=== PATIENT | male | born 1955 | race Caucasian/White ===

== ENCOUNTER 2022-04-23 07:42 | Outpatient (CLI) | payer MEDICARE, SELFPAY ==
--- NOTE | 2022-04-23 08:41 | ECG_ITS ---
Measurements Intervals [place] Rate: 54 P: 64 WI: 198 QRS: -20 QRSD: 81 T: -13 QT: 392 QTc: 374 Interpretive Statements SINUS BRADYCARDIA DELAYED PRECORDIAL R/S TRANSITION VOLTAGE CRITERIA FOR LVH BORDERLINE ST-T WAVE ABNORMALITY- INFERIOR LEADS BASELINE ARTIFACT- I, II, AVR, AVL, V1, V5-V6 BORDERLINE ECG NO PREVIOUS ECG AVAILABLE FOR COMPARISON Electronically Signed On 04-23-2022 9:17:39 CDT by Paulino De Luna D.O.
[2022-04-23 09:25] LABS: Basophils Percent Auto 0.7 % (0.2-1.2); Eosinophils Absolute Auto 0.2 K/mm3 (0-0.3); Eosinophils Percent Auto 3.5 % (0-4.4); Hematocrit 48.9 % (42.0-52.0); Hemoglobin 16.2 g/dL (14.0-18.0); Immature Granulocyte Absolute 0.02 K/mm3 (0.00-0.031); Immature Granulocyte Percent A 0.3 % (0-0.5); Lymphocytes Absolute Auto 1.46 K/mm3 (0.9-3.2); Lymphocytes Percent Auto 24.2 % (18.3-44.2); Mean Corpuscular HGB Conc 33.1 g/dl (32-36); Mean Corpuscular Hemoglobin 30.9 pg (26-34); Mean Corpuscular Volume 93.3 fl (80-100); Mean Platelet Volume 10.6 fl (7.4-10.4); Monocytes Absolute Auto 0.5 K/mm3 (0.1-0.6); Monocytes Percent Auto 8.6 % (2.6-8.5); Neutrophils Absolute Auto 3.8 K/mm3 (1.3-6.7); Neutrophils Percent Auto 62.7 % (45.5-73.1); Platelet Count Result 206 k/mm3 (150-375); Red Blood Count 5.24 M/mm3 (4.6-6.20); Red Cell Distribution Width 13.3 % (11.5-14.5)
[2022-04-23 09:37] LABS: Albumin Level 4.7 g/dL (3.5-5.1); Estimated Glomerular Filt Rate > 60; Glucose 99 mg/dL (65-110)
[2022-04-23 09:46] LABS: Urine Cotinine NEGATIVE
[2022-04-23 09:54] LABS: Hemoglobin A1C 5.7 % (<5.7)
== END 2022-04-23 07:43 | disposition home or self-care (01) ==
PROVIDERS: Visit Provider Orthopaedic Surgery
DX: Z01.818 Encounter for other preprocedural examination (principal); M17.12 Unilateral primary osteoarthritis, left knee; R00.1 Bradycardia, unspecified
CPT/HCPCS: 80307; 82040; 82565; 82947; 83036; 85025; 87081; 93005

== ENCOUNTER 2022-04-24 12:53 | Outpatient (CLI) | payer MEDICARE, SELFPAY ==
--- NOTE | ~2022-04-24 | MR_ITS ---
EXAMINATION: MR wrist RT wo con DATE: 04/24/2022 13:55 INDICATION: Numbness and tingling in the digits of the right hand post carpal tunnel release. TECHNIQUE: Magnetic resonance imaging (MRI) of the right wrist was performed without intravenous cont rast. Sequences performed include axial PD-weighted FSE and PD-weighted FS FSE, coronal PD-weighted F S FSE, T1-weighted SE and 3-D MERGE and sagittal PD-weighted FS FSE and PD-weighted FSE. COMPARISON: None FINDINGS: Intrinsic ligaments: Lunotriquetral ligament is normal. There is widening of the scapholunate interval with prominent thic kening and amorphous increased signal of the scapholunate ligament including both the dorsal and vola r components of the ligament consistent with at least partial tear. Triangular fibrocartilage complex (TFCC): There is a partial tear of the central fibrocartilaginous disc of the triangular fibrocartilage compl ex. The foveal and styloid attachments as well as the dorsal and volar radioulnar ligaments are manish l. The ulnar collateral ligament, ulnotriquetral ligament and meniscal homologue are normal. The exte nsor carpi ulnaris tendon sheath is normal. Extensor wrist: Extensor tendons of the wrist are normal. No tenosynovitis. Flexor wrist: The flexor tendons of the wrist are normal. Guyon's canal: Guyon's canal including the ulnar nerve and artery are normal. Bones/other: There is widening of the scapholunate interval consistent with insufficiency of the scapholunate liga ment. There is polyarticular osteoarthritis with nonuniform joint space narrowing and scattered subar ticular cystlike and edema-like changes. Atypical severe joint space narrowing at the lunocapitate ar ticulation and mild osteoarthritis at the wrist joint but with high-grade chondromalacia at the radio scaphoid articulation, both findings which can be seen in the setting of scapholunate advanced collap se (SLAC) wrist. Additional osteoarthritis, moderate severity at the first carpometacarpal joint and mild at the distal radioulnar, triscaphe, pisotriquetral and second and fifth carpal metacarpal joint s. There is thickening of the flexor retinaculum at the distal aspect of the carpal tunnel likely rel ated to reported history of prior carpal tunnel release. The more proximal aspect of the flexor retin aculum appears to remain thin and intact. There is mild increased T2 signal at the thenar musculature which could be seen with neuropathy of the motor branch of the median nerve. IMPRESSION: 1. 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 2. At least partial tear of the scapholunate ligament which appears insufficient with widening of the scapholunate joint space and secondary scapholunate advanced collapse (SLAC) wrist with severe osteo arthritis at the lunocapitate articulation of the midcarpal joint and mild osteoarthritis with high-g rade chondral malacia the radioscaphoid articulation. 3. Additional more typical distribution of mild to moderate polyarticular osteoarthritis at the wrist and carpus. Reviewed, dictated and finalized at location B. IMPRESSION: 1. 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
== END 2022-04-24 12:54 | disposition home or self-care (01) ==
LOC: ANHIMG 13:00
PROVIDERS: Visit Provider Orthopaedic Surgery
DX: Z98.890 Other specified postprocedural states (principal); M19.031 Primary osteoarthritis, right wrist; S63.591A Other specified sprain of right wrist, initial encounter; T14.90XA Injury, unspecified, initial encounter
CPT/HCPCS: 73221

== ENCOUNTER 2022-05-06 00:04 | Day surgery (SDC) | payer MEDICARE, SELFPAY ==
--- NOTE | 2022-04-23 07:34 | PC.NURSE ---
Addendum entered by Barbara Dyson RN 04/23/22 08:16: STOP ALL VITAMINS AND SUPPLEMENTS 3 DAYS PRIOR TO SURGERY PER ANESTHESIA, DATE TO TAKE LAST DOSE 05/02/22 Original Note: PRE-OP INSTRUCTIONS, PLEASE READ CAREFULLY Report to the Outpatient Waiting Room, entrance under the green pavilion located off [facility], at time _0830_ on date _05/06/22_. Planned Procedure Time: _1030_. PACK A SMALL OVERNIGHT BAG AND LEAVE IN THE CAR ALONG WITH YOUR WALKER Time changes happen often and if your time is changed the preop area will call you the afternoon before. - You and your visitor will be asked to self-screen and do not enter if you have any COVID symptoms. - Only one visitor is requested with a max of two and NO children visitors are allowed at this time. - The patient visitor may be requested to leave or wait in car when not with patient due to distancing restrictions. - A mask is optional within the hospital at this time. -VISITING HOURS 8AM-8PM Patients may have clear liquids (water, carbonated beverages, clear teas, apple juice) until 3 hours prior to surgery (0730 AM) with a maximum of 20 ounces. - No food from midnight until time of surgery Take the following medications with a SIP of water the morning of surgery: N/A DO NOT STOP ANY OF YOUR OTHER PRESCRIPTION MEDICATIONS PRIOR TO SURGERY ?EXCEPT THE FOLLOWING Medications to discontinue _IBUPROFEN PER DR. BALLARD'S INSTRUCTIONS__ Date to take last dose Please no deodorant, or body powder the day of surgery. No jewelry (including any body piercings) or valuables the day of surgery, leave them at home. Please take a shower or bath the night before, or the morning of, surgery with an antibacterial soap. Wear comfortable, loose fitting clothing. - Jewelry must be removed prior to entering the operating room. Rings and piercings that are not removed may be cut off. - The hospital will not accept responsibility for valuables. - Please leave all valuables, including medications, at home the day of surgery. If you are going home after surgery, a licensed star route mail driver must drive you home. - NO public transportation without another adult if you receive anesthesia. - We recommend that an adult stay with you for 24 hours following discharge. - We also recommend that you do not drive, make important decision, drink alcoholic beverages, or take any drugs that were not prescribed by your health care provider for at least 24 hours after your discharge time. Follow any additional instructions given to you from your surgeon. TOTAL JOINT CLASS 04/24/22 @ [address] [place] [address] ENTRANCE 2 - LOWER LEVEL If you or anyone in your household have experienced Covid symptoms in the past week, please notify your surgeon or the nurse liaison at the phone number below for possible testing. Instructions given to _PATIENT_and asked if any additional questions and then verbalized understanding. Patient advised to call surgeon office or pre surgery nurse liaison [phone] if any additional questions.
[2022-04-23 08:08] VITALS: BP 160/74; PULSE 60; RESP 20; TEMP 37.1; O2SAT 99; BMI 31.6
[2022-05-06] VITALS (16 sets, daily range): BP systolic 97–167; BP diastolic 52–90; PULSE 49–88; RESP 12–18; TEMP 36.3–36.6; O2SAT 96–100
--- NOTE | ~2022-05-06 | XR_ITS ---
EXAMINATION: [id number] DATE: 05/06/2022 13:53 INDICATION: Total left knee arthroplasty. Postop. TECHNIQUE: 2 views of left knee were obtained. COMPARISON: Left knee radiographs 04/03/2022 FINDINGS: There is a total left knee arthroplasty in near-anatomic alignment with patellar resurfacin g. No fracture. There is gas in the knee joint and soft tissues, consistent with recent surgery. IMPRESSION: 1. Total left knee arthroplasty in near-anatomic alignment. Reviewed, dictated and finalized at location A.
[2022-05-06] MEDS: ACETAMINOPHEN 500 MG TABLET 1000 MG PO (09:01)
--- NOTE | 2022-05-06 09:01 | WPDANESEPPF ---
Anes - Initial Pre Proc Eval Procedure: Operation Date: 05/06/22 10:30 Proposed Procedures p Left Total Knee Arthroplasty - Spenser Marte MD Date/Time: 05/06/22 09:01 Surgeon: Spenser Marte MD Pre Op Diagnosis: oa left knee Patient Data Age: 66 Gender: M Height: 1.74 m Weight: 95.7 kg Last Vital Signs Temp 37.1 C 04/23/22 08:08 Pulse 60 04/23/22 08:08 Resp 20 04/23/22 08:08 BP 160/74 H 04/23/22 08:08 Pulse Ox 99 04/23/22 08:08 O2 Del Method Room Air 04/23/22 08:08 Allergies Allergy/AdvReac Type Severity Reaction Status Date / Time No Known Allergies Allergy Verified 05/06/22 08:55 Home Medications Medication Instructions Recorded Confirmed Type [place] Xl 2 tab-cap BID 04/23/22 05/06/22 History Super Beta Prostrate 1 tab-cap BID 04/23/22 05/06/22 History chlorpheniramine-phenylpropan 4 1 tablet PO DAILY PRN CONGENSTION 04/23/22 05/06/22 History mg-37.5 mg tablet ginkgo biloba 60 mg tablet 60 mg PO QAM 04/23/22 05/06/22 History glucosam 750 mg-chondroi 100 See Rx Instructions .Route .COMPLEX 04/23/22 05/06/22 History mg-hyalur 1.65 mg-CF borate 108 mg tablet ([employer]) ibuprofen 200 mg tablet 800 mg PO Q6H PRN Pain 04/23/22 05/06/22 History multivitamin 1 tablet PO DAILY 04/23/22 05/06/22 History rivaroxaban 10 mg tablet (Xarelto) 10 mg PO DAILY PE prophylaxis s/p 04/25/22 04/25/22 Rx joint replacement surgery 14 days #14 tabs tdyjsqjp-cdyweytoi-bfqevroxb 3.5 3 drp LEFT EAR TID 05/06/22 05/06/22 History mg-10,000 unit/mL-1 % ear drops,susp Patient hx anesthesia problems: none Family hx anesthesia problems: none Results Review: All pre-operative results and documents have been reviewed as part of the pre-operative evaluation. PMFSH Past Medical History Medical History Osteoarthritis of left knee Surgical History Surgical History History of carpal tunnel surgery of left wrist 1995 History of carpal tunnel surgery of right wrist 2021 History of right knee joint replacement 2016 Family History Family History Grandparent Diabetes mellitus Social History Social History Smoking packs per day: 1 Smoking cigarettes per day: 20.0 Years smoked: 15 Smoking pack-years: 15.00 Smoking status: Former smoker Tobacco type: cigarettes Second hand tobacco smoke exposure: No Smoking end date: 02/10/98 Additional smoking assessment comments: PT DENIES ALL FORMS OF TOBACCO USE Alcohol intake: current Drinks per week: 3 Substance use: never Substance use type: does not use Living arrangements: alone Occupation/Education: occupation 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 Gender identity (if verbalized by the patient): Male Sexual Orientation (if Verbalized by the Patient): Straight or Heterosexual Spiritual care concerns: Yes Agree to blood products: No Anes - Eval Final PreProcedure Day of Procedure 05/06/22 09:01 Patient weight: obese Heart: regular rate and rhythm Lungs: clear to auscultation Airway: Mallampati scale class II Neurological: alert and oriented Last oral intake: >/= 8 hours ASA classification: II Emergent: no Anesthetic plan: proceed Anesthesia type and monitoring: general GIVS, regional spinal and standard monitoring Results Review: All pre-operative results and documents have been reviewed as part of the pre-operative evaluation. Informed Consent: The patient's anesthetic plan and its attendant risks and benefits were discussed with the patient/family/POA. Questions were solicited and answers provided to the satisfaction of the patient/family/POA.
[2022-05-06] MEDS: LACTATED RINGERS 1,000 ML 30 ML IV CONT ×3 (09:10→15:40)
--- NOTE | 2022-05-06 09:35 | WPDANESPNB ---
Anes - Peripheral Nerve Block Date/Time: 05/06/22 09:35 I have discussed with the patient/family/POA the placement of a peripheral nerve block for post-operative pain management, including associated risks, benefits, complications, and side effects. Alternative methods of post-operative analgesia were detailed. Questions were solicited and answers provided to the satisfaction of the patient/family/POA. Time-Out: A pre-procedural Time-Out was completed immediately before starting the procedure and confirmed: Patient Identification, Site, Procedure, Patient Position and the Availability of Requisite Equipment. Clinical Indications: Acute post-operative pain management requested by the operative surgeon. Nerve Block Insertion Note Anes-nerve block: adductor canal left Patient position: supine Skin prep: chlorhexidine Needle: 22 gauge, stimulating, insulated echogenic needle. Needle length: 80 mm Technique: ultrasound Injectate: bupivacaine 0.5% with epi 5 mcg/ml (30cc - no epi) Observations: tolerated well Complications: none Procedure start time:: 1017 Procedure end time:: 1019
[2022-05-06] MEDS: TRANEXAMIC ACID 1,000MG/ISO100 1,000 MG/100 ML BAG 200 MG IVPB (09:48)
--- NOTE | 2022-05-06 09:55 | WPDHPUPDATE1 ---
History and Physical Update Update Date/Time: 05/06/22 09:55 History and Physical has been reviewed, including an updated exam of the patient. There are NO changes in the patient's condition. Risks, benefits, and alternatives have been discussed and questions answered. Patient agrees to proceed with procedure.
[2022-05-06] MEDS: ceFAZolin 2 GM/D5W 50 ML 2 GM/50 ML BAG IVPB ×2 (10:49→18:42)
[2022-05-06] MEDS: GENTAMICIN BONE CEMENT REFOBACIN 1 EACH TOPICAL (12:07)
[2022-05-06] MEDS: ceFAZolin SODIUM 1 GM VIAL IV PUSH (12:39)
--- NOTE | 2022-05-06 13:21 | W.PM.PROC2 ---
Procedure Note - Detailed Date of Procedure 05/06/22 Pre-op Diagnosis oa left knee Post-op Diagnosis Same Procedure Performed Left total knee replacement Surgeon Spenser Marte MD [employer] Hanna [facility] Anesthesia Regional and Spinal Description of Procedure The patient was identified and proper site identified. In the preop holding area the anesthesia team performed a left-sided sub sartorial block after which the patient was taken to the operating room and transferred to the OR table positioning supine taking care to pad the torso and extremities. After spinal anesthetic was administered, a nonsterile tourniquet was placed high on the left thigh. The left lower extremity was prepped and draped in the usual sterile fashion. The extremity was exsanguinated and with the knee flexed tourniquet was inflated to 300 mmHg remaining up for approximately 75 minutes. An anterior midline incision was made and a modified medial parapatellar approach was used. Infra and suprapatellar fat pads were excised. Patella was resected leaving 15 mm thickness and prepared for the size 34 round three peg component. Using the intramedullary guide the distal femur was cut in the proper orientation for the size 70 femoral component. Using the extramedullary guide the tibia was cut perpendicular to the long axis protecting collateral ligaments and popliteal structures. It was sized to a 79. Flexion and extension gaps were balanced. Trial reduction was undertaken and the weight-bearing line was noted to passed through the center of the joint. Proximal tibia was drilled and punched in the proper orientation for the real component. Trial components were removed. The bone surfaces were washed with pulsatile lavage and dried. The real components were cemented simultaneously. The knee was held in extension and the patella held clamped until the cement had cured. Excess cement was removed from the joint. After trialing it was determined that the 11 mm insert gave full range of motion from 0-120 degrees of flexion and the patella tracked in the femoral groove with no lift-off. After final lavage the joint the real size 11 E poly insert was placed and secured with a locking bar. A Betadine and saline wash was placed into the wound and allowed to sit for approximately 3 minutes and then evacuated. Periarticular tissues were infiltrated with 60 cc of the arthroplasty solution. Surgicel powder was applied into the wound during the closure. The extensor mechanism was repaired with #2 Vicryl suture and 0 looped PDS suture. Subcu was reapproximated with 3-0 Monocryl, 2-0 Quill and tissue adhesive for the skin. A sterile dressing was applied. He tolerated the procedure well, was awakened and extubated, transferred to the bed and was taken to recovery area in stable condition. There were no known intraoperative complications. Perioperative antibiotics were administered. Estimated Blood Loss 200 Tourniquet Time 75 Drains No Packing No Pathology None sent Complications No immediate complications Condition Stable Disposition PACU [facility] Billing Surgery - Charge Forward: Surgery Billing ([id number])
[2022-05-06] MEDS: fentaNYL CITRATE INJ (*CRX) 100 MCG/2 ML VIAL 25 MCG IV PUSH (14:05)
--- NOTE | 2022-05-06 15:24 | SUR.PHASEI ---
pt met discharge criteria from pacu. currently waiting for a bed to be available.
--- NOTE | 2022-05-06 16:14 | SUR.PHASEI ---
this nurse called see if she can give report. the nurse. the nurse was going over discharge with another pt and will call me back to give report.
[2022-05-06] MEDS: SENNA/DOCUSATE SODIUM TABLET 2 TAB PO (17:55)
[2022-05-06] MEDS: KETOROLAC 15 MG/ML VIAL (*BKC) IV PUSH (17:55)
[2022-05-06] MEDS: oxyCODONE/ACETAMINOPHEN (*CRX) 5-325 MG TABLET 1 TABLET PO ×2 (17:56→20:12)
[2022-05-06] MEDS: NEOMYCIN/POLYMYXIN/HYDROCORT OT SUSP 10 ML BTL (*BKC) 3 DROP LEFT EAR (17:56)
[2022-05-06] MEDS: FAMOTIDINE 20 MG TABLET PO (20:12)
[2022-05-07] MEDS: ceFAZolin 2 GM/D5W 50 ML 2 GM/50 ML BAG IVPB ×2 (03:46→11:13)
[2022-05-07] MEDS: oxyCODONE/ACETAMINOPHEN (*CRX) 5-325 MG TABLET 1 TABLET PO ×3 (04:19→09:10)
[2022-05-07 04:37] VITALS: BP 107/45; PULSE 57; RESP 18; TEMP 36.4; O2SAT 100
[2022-05-07] MEDS: KETOROLAC 15 MG/ML VIAL (*BKC) IV PUSH ×3 (05:49→11:14)
[2022-05-07] MEDS: SENNA/DOCUSATE SODIUM TABLET 2 TAB PO (09:10)
[2022-05-07] MEDS: polyethylene glycoL 3350 17 GM POWD.PACK PO (09:10)
[2022-05-07] MEDS: MULTIVITAMINS THERAPEUTIC TAB (*BKC) 1 TABLET PO (09:11)
[2022-05-07] MEDS: RIVAROXABAN 10 MG TABLET PO (09:11)
[2022-05-07] MEDS: FAMOTIDINE 20 MG TABLET PO (09:11)
[2022-05-07] MEDS: NEOMYCIN/POLYMYXIN/HYDROCORT OT SUSP 10 ML BTL (*BKC) 3 DROP LEFT EAR (09:11)
--- NOTE | 2022-05-07 09:57 | WPDANESPN ---
Anes - Prog Note Post-Op Date/Time: 05/07/22 09:57 Cardiovascular status: normal Respiratory status: normal Airway patency: baseline Mental status: baseline Post-Op hydration status: normal Vital Signs: Last Vital Signs Temp 36.4 C 05/07/22 04:37 Pulse 57 L 05/07/22 04:37 Resp 18 05/07/22 04:37 BP 107/45 L 05/07/22 04:37 Pulse Ox 100 05/07/22 04:37 O2 Del Method Room Air 05/07/22 08:24 O2 Flow Rate 6 05/06/22 13:35 Pain Score (VAS): 2/10 I/O: Intake & Output 05/06/22 05/07/22 05/07/22 23:59 07:59 15:59 Intake Total 1050 550 Output Total 150 1900 Balance 900 -1350 Post-procedural complaints: none Patient Feedback: Patient satisfied with anesthetic care.
--- NOTE | 2022-05-07 10:10 | PM.DS ---
DS: Admitting Diagnosis Discharge Date 05/07/2022 Admitting Diagnosis Left knee osteoarthritis DS: Discharge Diagnosis Discharge Diagnosis (1) Status post total left knee replacement: Code(s): Z96.652 - Presence of left artificial knee joint Status: Acute Plan 66-year-old male postop day 1 after left total knee arthroplasty. Overall doing very well. He has been using an ice pack on the hospital but states he has an ice machine that had used on his right knee, he will use once he is home 3-4 times per day. No drainage at the incision site. Postoperative medications and wound care were discussed with him. Plan follow-up in 2 weeks for wound check. He will call our office with any further questions or concerns prior to that scheduled follow-up. DS: Summary Hospital Course Reason for hospitalization: Observation after outpatient procedure Hospital Course: 66-year-old male admitted for observation after left total knee arthroplasty. Uneventful overnight stay. He will plan to work with therapy today prior to discharge later this afternoon. No issues at the incision site. Pain is well controlled. Status at Discharge Functional status at discharge: uses cane/walker Overall status at discharge: patient is progressing back to baseline Time Spent with Patient Time attestation: Total time spent providing and/or coordinating discharge services: Time spent: Less than 30 minutes Exam Const: General: comfortable and no acute distress HENMT: Mouth: Yes moist mucous membranes Eyes: General: appearance normal, both eyes and all related structures Resp: Effort & Inspection: normal respiratory effort GI: Inspection: non-distended Skin: General skin exam: normal color and no erythema Neuro: Sensory Exam: normal sensation Extrem: Other: Exam of the left leg shows a clean and dry surgical dressing over the left knee. He is able to dorsiflex and plantar flex the foot and ankle without difficulty. Calf negative for tenderness. Swelling at the left knee consistent with the recent surgical procedure. Neurovascular status left lower extremity intact. Psych: Mental Status: mental status grossly normal Radiology Reports: Comments: EXAMINATION: [id number] DATE: 05/06/2022 13:53 INDICATION: Total left knee arthroplasty. Postop. TECHNIQUE: 2 views of left knee were obtained. COMPARISON: Left knee radiographs 04/03/2022 FINDINGS: There is a total left knee arthroplasty in near-anatomic alignment with patellar resurfacing. No fracture. There is gas in the knee joint and soft tissues, consistent with recent surgery. IMPRESSION: 1. Total left knee arthroplasty in near-anatomic alignment. Discharge Plan Discharge Patient Disposition: Home, Self-Care Discharge Instructions: 3 times daily for 20 minutes each time, reclining in bed with ice packs over the incision and a pillow underneath the calf of the affected leg, not under the knee. Your wound is glued so it is okay to remove the dressing, get into the shower and get the wound wet in two days. Be sure to read through all the information that came from a my office and the hospital. Most of the answers you will need can be found that material. Call the office with any questions that you cannot find answers to, or concerns you may have. After the Xarelto is completed, start taking one coated 325 mg aspirin daily and do this for four more weeks. Please call [facility] at as soon as possible to arrange for/verify your follow-up appointment to be seen in 2 weeks. Also, call the office with any orthopedic/surgical related questions prior to follow-up. Be sure to get up and move around several times daily but do not overdo it. Take the arthritis formula Tylenol 650 mg tablet on an 8 hour schedule. A good 8 hour schedule is: 6:00 a.m., 2:00 p.m., 10:00 p.m. you may take the prescribed pain medication along with the Tylenol; it is not to be
[2022-05-07 10:19] VITALS: BP 138/62; PULSE 74; RESP 18; TEMP 36.9; O2SAT 95
[2022-05-07] MEDS: LORATADINE 5 MG TABLET PO (10:28)
== END 2022-05-07 12:35 | disposition home or self-care (01) ==
LOC: ANHSURGERY 13:17 → ANH2MED 17:10
PROVIDERS: Visit Provider Orthopaedic Surgery
PROC: (CPT 27447; principal; 2022-05-06 10:30)
DX: M17.12 Unilateral primary osteoarthritis, left knee (principal); G89.18 Other acute postprocedural pain; Z87.891 Personal history of nicotine dependence; E66.9 Obesity, unspecified; Z68.31 Body mass index [BMI] 31.0-31.9, adult
CPT/HCPCS: 27447; 64447; 73560; 97110; 97161; 97165; A9270; C1713; C1776; J0171; J0690; J1885; J2250; J2270; J2405; J2795; J3010; J7120

== ENCOUNTER 2022-08-26 01:41 | Day surgery (SDC) | payer MEDICARE, SELFPAY ==
[2022-08-21 09:37] VITALS: BMI 31.6
--- NOTE | 2022-08-21 09:42 | PC.NURSE ---
Report to the Outpatient Waiting Room, entrance under the green pavilion located off [facility], at time ____0830___ on date __08/26/22 . Planned Procedure Time: __1030 . Time changes happen often and if your time is changed the preop area will call you the afternoon before. - You and your visitor will be asked to self-screen and do not enter if you have any COVID symptoms. - A mask is optional within the hospital at this time. Patients may have clear liquids (water, carbonated beverages, clear teas, apple juice) until 3 hours prior to surgery (0730 AM) with a maximum of 20 ounces. - No food from midnight until time of surgery - Infants may have breast milk until 4 hours before surgery, formula 6 hours prior to surgery. - Children will be allowed to drink immediately following surgery. If applicable, please bring a bottle or sippy cup to assist with drinking. Juice, water, soda, and popsicles are readily available. For infants on formula, please bring formula the day of surgery. Pacifiers are allowed. Take the following medications with a SIP of water the morning of surgery: NONE DO NOT STOP ANY OF YOUR OTHER PRESCRIPTION MEDICATIONS PRIOR TO SURGERY ?EXCEPT THE FOLLOWING Medications to discontinue per ANESTHESIA - MULTIVITAMIN 3 DAYS PRIOR TO SURGERY, Date to take last dose 08/22/22_ Please no make-up, nail portuguese, hairspray, perfume, deodorant, or body powder the day of surgery. No jewelry (including any body piercings) or valuables the day of surgery, leave them at home. Please take a shower or bath the night before, or the morning of, surgery with an antibacterial soap. Wear comfortable, loose fitting clothing. Children are encouraged to wear pajamas. - Jewelry must be removed prior to entering the operating room. Rings and piercings that are not removed may be cut off. - The hospital will not accept responsibility for valuables. - Please leave all valuables, including medications, at home the day of surgery. If you are going home after surgery, a licensed inventory associate and driver must drive you home. - NO public transportation without another adult if you receive anesthesia. - We recommend that an adult stay with you for 24 hours following discharge. - We also recommend that you do not drive, make important decision, drink alcoholic beverages, or take any drugs that were not prescribed by your health care provider for at least 24 hours after your discharge time. For Pediatric surgeries, we recommend two adults accompany the child home. Follow any additional instructions given to you from your surgeon. If you or anyone in your household have experienced Covid symptoms in the past week, please notify your surgeon or the nurse liaison at the phone number below for possible testing. Telephone instructions given to ___PATIENT and asked if any additional questions and then verbalized understanding. Patient advised to call surgeon office or pre surgery nurse liaison [phone] if any additional questions.
--- NOTE | 2022-08-26 08:39 | WPDANESEPPF ---
Anes - Initial Pre Proc Eval Procedure: Operation Date: 08/26/22 09:30 Proposed Procedures p Revision Right Carpal Tunnel Release - Spenser Marte MD Date/Time: 08/26/22 08:39 Surgeon: Spenser Marte MD Pre Op Diagnosis: right carpal tunnel syndrome Patient Data Age: 67 Gender: M Height: 1.74 m Weight: 95.7 kg Allergies Allergy/AdvReac Type Severity Reaction Status Date / Time No Known Allergies Allergy Verified 08/15/22 09:33 Home Medications Medication Instructions Recorded Confirmed Type [place] Xl 2 tab-cap PO BID 04/23/22 08/21/22 History chlorpheniramine-phenylpropan 4 1 tablet PO DAILY PRN CONGENSTION 04/23/22 08/21/22 History mg-37.5 mg tablet ibuprofen 200 mg tablet 800 mg PO Q6H PRN Pain 04/23/22 08/21/22 History multivitamin 1 tablet PO DAILY 04/23/22 08/21/22 History omega 8-tip-exr-fish oil 60 mg-90 1 cap PO DAILY 07/09/22 08/21/22 History mg-500 mg capsule (Fish Oil) antiarthritic combination no.2 900 900 mg PO DAILY 08/15/22 08/21/22 History mg tablet (glucosamine-chondroitin) Patient hx anesthesia problems: none Family hx anesthesia problems: none Results Review: All pre-operative results and documents have been reviewed as part of the pre-operative evaluation. [facility] Past Medical History Medical History Osteoarthritis of left knee Surgical History Surgical History History of carpal tunnel surgery of left wrist 1995 History of carpal tunnel surgery of right wrist 2021 History of right knee joint replacement 2016 Status post total left knee replacement 05/06/2022 Family History Family History Grandparent Diabetes mellitus Social History Social History Smoking packs per day: 1 Smoking cigarettes per day: 20.0 Years smoked: 15 Smoking pack-years: 15.00 Smoking status: Former smoker Tobacco type: cigarettes Second hand tobacco smoke exposure: No Smoking end date: 02/10/98 Alcohol intake: current Drinks per week: 3 Alcohol use details: STATES 3 OR LESS/WEEK Substance use: never Substance use type: does not use Lack of Transportation: No Lack of Food: Never True Current Housing: I Have Housing Concerned About Future Housing: No Difficulty Paying Gas/Electric Bills: No Difficulty Paying for Meds: No Currently Unemployed: No Education: High School Diploma/GED Difficulty w/ Childcare or Family Care: No Living arrangements: alone Occupation/Education: occupation 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 Gender identity (if verbalized by the patient): Male Sexual Orientation (if Verbalized by the Patient): Straight or Heterosexual Spiritual care concerns: Yes Agree to blood products: No Anes - Eval Final PreProcedure Day of Procedure 08/26/22 08:39 Patient weight: obese Heart: regular rate and rhythm Lungs: clear to auscultation Airway: Mallampati scale class II Neurological: alert and oriented Last oral intake: >/= 8 hours ASA classification: II Emergent: no Anesthetic plan: proceed Anesthesia type and monitoring: general GIVS and standard monitoring Results Review: All pre-operative results and documents have been reviewed as part of the pre-operative evaluation. Informed Consent: The patient's anesthetic plan and its attendant risks and benefits were discussed with the patient/family/POA. Questions were solicited and answers provided to the satisfaction of the patient/family/POA.
[2022-08-26] MEDS: KETOROLAC 15 MG/ML VIAL (*BKC) IV PUSH (08:45)
[2022-08-26] MEDS: ACETAMINOPHEN 500 MG TABLET 1000 MG PO (08:45)
[2022-08-26] MEDS: LACTATED RINGERS 1,000 ML 30 ML IV CONT (08:45)
[2022-08-26 08:49] VITALS: BP 169/62; PULSE 56; RESP 14; TEMP 36.5; O2SAT 99
--- NOTE | 2022-08-26 09:38 | WPDHPUPDATE1 ---
History and Physical Update Update Date/Time: 08/26/22 09:38 History and Physical has been reviewed, including an updated exam of the patient. There are NO changes in the patient's condition. Risks, benefits, and alternatives have been discussed and questions answered. Patient agrees to proceed with procedure.
[2022-08-26] MEDS: ceFAZolin 2 GM/D5W 50 ML 2 GM/50 ML BAG IVPB (09:45)
[2022-08-26] MEDS: BUPIVACAINE/EPINEPHRINE 0.25% 50 ML VIAL 10 ML INFILTRATE (10:09)
[2022-08-26] MEDS: BUPIVACAINE/EPINEPHRINE 0.25% 10 ML VIAL INFILTRATE (10:26)
[2022-08-26 10:40] VITALS: BP 91/51; PULSE 50; RESP 14; O2SAT 99
--- NOTE | 2022-08-26 10:51 | P.OP_ITS ---
Procedure Note - Detailed Date of Procedure 08/26/22 Pre-op Diagnosis right carpal tunnel syndrome -status post prior right carpal tunnel release Post-op Diagnosis Same Procedure Performed Revision right carpal tunnel release Surgeon Spenser Marte MD [employer] Anesthesia MAC and Local Indications Continued symptoms following prior right carpal tunnel release over a year ago Description of Procedure The patient was identified and proper side identified. After being taken to the operating room and transferred to the OR table, a nonsterile tourniquet was placed high on the right upper extremity, which was prepped and draped in the usual sterile fashion. After IV sedation was administered the extremity was exsanguinated and tourniquet inflated to 300 mmHg remaining up for approximately 18 minutes. The scar from the original incision was used and then extended slightly distally. Subcutaneous tissue was sharply dissected through the scarred portion of the palmaris fascia. Under this was intact sac and [place] fat which was removed. The transverse carpal ligament was identified. The proximal aspect of this was scarred consistent with prior release but the distal part was not. A release of the entire transverse carpal ligament and deep fascia extending into the distal forearm and more distally into the palm was carried out. This released the carpal canal completely. Wound was irrigated with sterile saline. Subcutaneous tissue was infiltrated with about 5 cubic centimeters of 0.25% Marcaine and epinephrine solution and then the tourniquet was released. Hemostasis was carried out bipolar cautery. Median nerve had the appropriate blush with reperfusion. The wound was irrigated again with sterile saline solution. Skin edges were reapproximated with four 0 nylon suture and a sterile dressing was applied. A well-padded volar wrist splint was fashioned with the wrist in a neutral position. Estimated Blood Loss 1 Tourniquet Time 18 Drains No Packing No Pathology None sent Complications No immediate complications Condition Stable Disposition PACU [facility] Billing Surgery - Charge Forward: Surgery Billing ([id number])
[2022-08-26 11:10] VITALS: BP 115/47; PULSE 44; RESP 16
[2022-08-26 11:40] VITALS: BP 114/84; PULSE 48; RESP 20
== END 2022-08-26 11:48 | disposition home or self-care (01) ==
PROVIDERS: Visit Provider Orthopaedic Surgery
PROC: (CPT 64721; principal; 2022-08-26 09:30)
DX: G56.01 Carpal tunnel syndrome, right upper limb (principal); F17.210 Nicotine dependence, cigarettes, uncomplicated
CPT/HCPCS: 64721; A9270; J0690; J1885; J2250; J2704; J3010; J7120

== ENCOUNTER 2022-11-18 00:05 | Day surgery (SDC) | payer MEDICARE, SELFPAY ==
[2022-11-07 15:10] VITALS: BMI 31.7
--- NOTE | 2022-11-13 07:59 | PC.NURSE ---
Report to the Outpatient Waiting Room, entrance under the green pavilion located off [facility], at time _0930 on date _11/18/22 . Planned Procedure Time: __1130 . Time changes happen often and if your time is changed the preop area will call you the afternoon before. - You and your visitor will be asked to self-screen and do not enter if you have any COVID symptoms. - A mask is optional within the hospital at this time. Patients may have clear liquids (water, carbonated beverages, clear teas, apple juice) until 3 hours prior to surgery with a maximum of 20 ounces. - No food from midnight until time of surgery - Infants may have breast milk until 4 hours before surgery, infant formula 6 hours prior to surgery. - Children will be allowed to drink immediately following surgery. If applicable, please bring a bottle or sippy cup to assist with drinking. Juice, water, soda, and popsicles are readily available. For infants on formula, please bring formula the day of surgery. Pacifiers are allowed. Take the following medications with a SIP of water the morning of surgery: NONE DO NOT STOP ANY OF YOUR OTHER PRESCRIPTION MEDICATIONS PRIOR TO SURGERY ?EXCEPT THE FOLLOWING Medications to discontinue per physician ALL VITAMINS 3 DAYS PRE OP.LAST DOSE 11/14/22 Date to take last dose Please no make-up, nail romansh, hairspray, perfume, deodorant, or body powder the day of surgery. No jewelry (including any body piercings) or valuables the day of surgery, leave them at home. Please take a shower or bath the night before, or the morning of, surgery with an antibacterial soap. Wear comfortable, loose fitting clothing. Children are encouraged to wear pajamas. - Jewelry must be removed prior to entering the operating room. Rings and piercings that are not removed may be cut off. - The hospital will not accept responsibility for valuables. - Please leave all valuables, including medications, at home the day of surgery. If you are going home after surgery, a licensed concrete mixing truck driver must drive you home. - NO public transportation without another adult if you receive anesthesia. - We recommend that an adult stay with you for 24 hours following discharge. - We also recommend that you do not drive, make important decision, drink alcoholic beverages, or take any drugs that were not prescribed by your health care provider for at least 24 hours after your discharge time. For Pediatric surgeries, we recommend two adults accompany the child home. Follow any additional instructions given to you from your surgeon. If you or anyone in your household have experienced Covid symptoms in the past week, please notify your surgeon or the nurse liaison at the phone number below for possible testing. Telephone instructions given to __PT and asked if any additional questions and then verbalized understanding. Patient advised to call surgeon office or pre surgery nurse liaison [phone] if any additional questions.
--- NOTE | 2022-11-18 11:08 | WPDHPUPDATE1 ---
History and Physical Update Update Date/Time: 11/18/22 11:08 History and Physical has been reviewed, including an updated exam of the patient. There are NO changes in the patient's condition. Risks, benefits, and alternatives have been discussed and questions answered. Patient agrees to proceed with procedure.
--- NOTE | 2022-11-18 11:09 | WPDANESEPPF ---
Anes - Initial Pre Proc Eval Procedure: Operation Date: 11/18/22 12:00 Proposed Procedures p Left Carpal Tunnel Release - Spenser Marte MD Date/Time: 11/18/22 11:09 Surgeon: Spenser Marte MD Pre Op Diagnosis: left carpal tunnel syndrome Patient Data Age: 67 Gender: M Height: 1.74 m Weight: 96.2 kg Allergies Allergy/AdvReac Type Severity Reaction Status Date / Time No Known Allergies Allergy Verified 11/13/22 07:51 Home Medications Medication Instructions Recorded Confirmed Type chlorpheniramine-phenylpropan 4 1 tablet PO DAILY PRN CONGENSTION 04/23/22 11/13/22 History mg-37.5 mg tablet ibuprofen 200 mg tablet 800 mg PO Q6H PRN Pain 04/23/22 11/13/22 History omega 7-hdx-kkw-fish oil 60 mg-90 2 cap PO BID 07/09/22 11/13/22 History mg-500 mg capsule (Fish Oil) antiarthritic combination no.2 900 900 mg PO DAILY 08/15/22 11/13/22 History mg tablet (glucosamine-chondroitin) Patient hx anesthesia problems: none Family hx anesthesia problems: none Results Review: All pre-operative results and documents have been reviewed as part of the pre-operative evaluation. [facility] Past Medical History Medical History (Updated 11/18/22 @ 11:10 by Zack Aguilar MD) Arthritis of left wrist Obesity Osteoarthritis of left knee Psoriatic arthritis Surgical History Surgical History History of carpal tunnel surgery of left wrist - 1995 History of carpal tunnel surgery of right wrist 2021 History of right knee joint replacement 2016 Right carpal tunnel syndrome Revision right carpal tunnel release August 26, 2022 Status post total left knee replacement 05/06/2022 Family History Family History Grandparent Diabetes mellitus Social History Social History Smoking packs per day: 1 Smoking cigarettes per day: 20.0 Years smoked: 15 Smoking pack-years: 15.00 Smoking status: Former smoker Tobacco type: cigarettes Second hand tobacco smoke exposure: No Smoking end date: 02/10/98 Alcohol intake: current Drinks per week: 2 Alcohol use details: STATES 3 OR LESS/WEEK Substance use: never Substance use type: does not use Lack of Transportation: No Lack of Food: Never True Current Housing: I Have Housing Concerned About Future Housing: No Difficulty Paying Gas/Electric Bills: No Difficulty Paying for Meds: No Currently Unemployed: No Education: High School Diploma/GED Difficulty w/ Childcare or Family Care: No Living arrangements: alone Occupation/Education: occupation 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 Gender identity (if verbalized by the patient): Male Sexual Orientation (if Verbalized by the Patient): Straight or Heterosexual Spiritual care concerns: No Agree to blood products: No Anes - Eval Final PreProcedure Day of Procedure 11/18/22 11:09 Patient weight: obese Heart: regular rate and rhythm Lungs: clear to auscultation Airway: Mallampati scale class II Neurological: alert and oriented Last oral intake: >/= 8 hours ASA classification: III Emergent: no Anesthetic plan: proceed Anesthesia type and monitoring: general GIVS and standard monitoring Results Review: All pre-operative results and documents have been reviewed as part of the pre-operative evaluation. Informed Consent: The patient's anesthetic plan and its attendant risks and benefits were discussed with the patient/family/POA. Questions were solicited and answers provided to the satisfaction of the patient/family/POA.
[2022-11-18 11:15] VITALS: BP 158/58; PULSE 59; RESP 14; TEMP 36.4; O2SAT 100
[2022-11-18] MEDS: LACTATED RINGERS 1,000 ML 30 ML IV CONT (11:20)
[2022-11-18] MEDS: KETOROLAC 15 MG/ML VIAL (*BKC) IV PUSH (11:20)
[2022-11-18] MEDS: ceFAZolin 2 GM/D5W 50 ML 2 GM/50 ML BAG IVPB (11:27)
[2022-11-18] MEDS: BUPIVACAINE/EPINEPHRINE 0.5% 50 ML VIAL 10 ML INFILTRATE (11:52)
[2022-11-18 12:11] VITALS: BP 80/40; PULSE 51; RESP 14; O2SAT 94
--- NOTE | 2022-11-18 12:18 | W.PM.PROC2 ---
Procedure Note - Detailed Date of Procedure 11/18/22 Pre-op Diagnosis left carpal tunnel syndrome Post-op Diagnosis Same Procedure Performed Open left carpal tunnel release Surgeon Spenser Marte MD Home Health Occupational Therapist [place] Anesthesia MAC and Local Description of Procedure The patient was identified and proper side identified. After being taken to the operating room and transferred to the OR table, a nonsterile tourniquet was placed high on the left upper extremity, which was prepped and draped in the usual sterile fashion. After IV sedation was administered, the subcutaneous tissue in the area of the incision was infiltrated with several cc of 0.25% Marcaine and epinephrine solution. The extremity was exsanguinated and tourniquet inflated to 250 mmHg remaining up for approximately five minutes. A longitudinal incision was over the ulnar aspect of the transverse carpal ligament. Subcutaneous tissue was bluntly dissected down to the ligament, which was identified and then transected longitudinally in line with the incision releasing the contents of the carpal canal. The tourniquet was released. Hemostasis was carried out with bipolar electrocautery. The median nerve had appropriate blush with reperfusion. The wound was irrigated with sterile saline solution. Skin edges were reapproximated with four 0 nylon suture and a sterile dressing was applied. A well-padded volar wrist splint was fashioned with the wrist in a neutral position. Estimated Blood Loss 2 Tourniquet Time 5 Drains No Pathology None sent Complications No immediate complications Condition Stable Disposition PACU [facility] Billing Surgery - Charge Forward: Surgery Billing ([id number])
[2022-11-18 12:40] VITALS: BP 95/51; PULSE 54; RESP 14; O2SAT 95
== END 2022-11-18 13:07 | disposition home or self-care (01) ==
PROVIDERS: Visit Provider Orthopaedic Surgery
PROC: (CPT 64721; principal; 2022-11-18 12:00)
DX: G56.02 Carpal tunnel syndrome, left upper limb (principal); E66.9 Obesity, unspecified; Z68.32 Body mass index [BMI] 32.0-32.9, adult; Z87.891 Personal history of nicotine dependence
CPT/HCPCS: 64721; J0690; J1885; J2250; J2704; J3010; J7120